=== PATIENT | female | born 1965 | race Two or more races ===

== ENCOUNTER 2018-11-21 15:26 | Emergency (ER) | payer SELFPAY ==
[~2018-11-21] VITALS: Ht 165.1 cm; Wt 113.0 kg
[2018-11-21 17:40] VITALS: BP 110/58
== END 2018-11-21 18:51 | disposition home or self-care (01) ==
LOC: ER 15:26
DX: E11.40 Type 2 diabetes mellitus with diabetic neuropathy, unspecified (principal); G57.93 Unspecified mononeuropathy of bilateral lower limbs; M79.605 Pain in left leg; M79.604 Pain in right leg; I10 Essential (primary) hypertension; Z98.890 Other specified postprocedural states
CPT/HCPCS: 99283